=== PATIENT | male | born 1960 | race African-American/Black ===

== ENCOUNTER 2018-03-25 21:20 | Inpatient (IN) | payer OTHER ==
[~2018-03-25] VITALS: Ht 188 cm; Wt 102.1 kg
[2018-03-25] MEDS ORDERED: IV NS 0.9% 1,000 ML BAG IV ONE (21:30)
[2018-03-25] MEDS ORDERED: ONDANSETRON HCL/PF 4 MG/2 ML VIAL IVP ONE (21:30)
[2018-03-25] MEDS ORDERED: ONDANSETRON HCL/PF 4 MG/2 ML VIAL ONE (21:32)
--- NOTE | 2018-03-25 21:34 | NUR ---
DIVISION HEAD AT BEDSIDE FOR BLOOD DRAW
--- NOTE | 2018-03-25 21:35 | NUR ---
EKG AT BEDSIDE
[2018-03-25 21:46] LABS: ABG BASE EXCESS -8.6 mmol/L; ABG PCO2 22.2 mmHg (35.0-45.0); ABG PH 7.423 (7.350-7.450); AaDO2 404.1 mmHg; COHb 0.3 % (0.5-1.5); MetHb 0.4 % (0.0-1.5); O2Hb 97.3 % (94.0-97.0); SITE, ABG Right Radial; VENT MODE, BG NRB
--- NOTE | 2018-03-25 21:48 | NUR ---
RT AT BEDSIDE
[2018-03-25 23:12] LABS: BASOPHILS % (AUTO) 0.2 % (0.0-2.0); EOSINOPHILS % (AUTO) 0.5 % (0.0-6.0); HEMATOCRIT 31 % (39-51); HEMOGLOBIN 10.2 g/dL (13.5-17.5); LYMPHOCYTES # (AUTO) 0.7 /CMM (0.8-4.8); LYMPHOCYTES % (AUTO) 4.5 % (20.0-44.0); MEAN CORPUSCULAR HEMOGLOBIN 29 PG (26.0-33.0); MEAN CORPUSCULAR HGB CONC 33 g/dl (31.0-36.0); MEAN CORPUSCULAR VOLUME 88 fL (80-96); MONOCYTES # (AUTO) 0.7 /CMM (0.1-1.30); MONOCYTES % (AUTO) 4.1 % (2.0-12.0); NEUTROPHILS # (AUTO) 14.7 /CMM (1.8-8.9); NEUTROPHILS % (AUTO) 90.7 % (43.0-81.0); PLATELET COUNT (AUTO) 316 /CMM (150-450); RDW COEFFICIENT OF VARIATION 16.3 (11.5-15.0); RED BLOOD CELL COUNT(AUTO) 3.57 MIL/uL (4.5-6.0); WHITE BLOOD COUNT (AUTO) 16.2 K/uL (4.3-11.0)
[2018-03-25 23:48] LABS: CALCIUM, SERUM 7.6 mg/dL (8.5-10.1); POTASSIUM 3.4 mmol/L (3.5-5.1)
[2018-03-25 23:49] LABS: TROPONIN I 0.727 ng/mL (0.00-0.056)
[2018-03-25 23:51] LABS: INR 1.05 (0.87-1.13)
[2018-03-25 23:53] LABS: ALBUMIN 2.3 g/dL (3.4-5.0); BILIRUBIN,DIRECT 0.2 mg/dL (0.0-0.2); BILIRUBIN,TOTAL 0.7 mg/dL (0.2-1.0); TOTAL PROTEIN, SERUM 6.3 g/dL (6.4-8.2)
[2018-03-26] VITALS (18 sets, daily range): BP systolic 100–134; BP diastolic 59–86
--- NOTE | 2018-03-26 00:22 | NUR ---
RECEIVED AUTH NUMBER [id number] FROM [facility]
[2018-03-26] MEDS ORDERED: PIPERACILLIN /TAZOBACTAM 3.375 G in IV D5W 50 ML IV ONE (00:30)
[2018-03-26] MEDS ORDERED: CT SWABBABLE VALVE TRANS SET 1 EA INFUS.SET MC ONE (00:32)
[2018-03-26] MEDS ORDERED: IOHEXOL-350 100 ML VIAL IV ONE (00:32)
[2018-03-26] MEDS ORDERED: IV NS 0.9% 250 ML IV ONE (00:32)
[2018-03-26] MEDS ORDERED: IOHEXOL-300 100 ML VIAL IV ONE (00:33)
--- NOTE | 2018-03-26 00:34 | NUR ---
PT OFF TO CT
[2018-03-26] MEDS ORDERED: PIPERACILLIN /TAZOBACTAM 3.375 G VIAL IV ONE (00:42)
[2018-03-26] MEDS ORDERED: AMOX-430 PO (00:46)
[2018-03-26] MEDS ORDERED: METR500T PO (00:46)
[2018-03-26] MEDS ORDERED: HYDR-552 PO (00:46)
[2018-03-26] MEDS ORDERED: LISI-603 PO (01:56)
[2018-03-26] MEDS ORDERED: GLIM4TAB2 PO (01:56)
[2018-03-26] MEDS ORDERED: CANA300T PO (01:56)
[2018-03-26] MEDS ORDERED: LINA5TAB PO (01:56)
[2018-03-26] MEDS ORDERED: METF10004 PO (01:56)
[2018-03-26] MEDS ORDERED: ATOR10TA PO (01:56)
--- NOTE | 2018-03-26 02:13 | NUR ---
CALLED DANIELLE FOR RESULTS. STATED THEY HAVE NOT BEEN READ BUT WILL SOON
--- NOTE | 2018-03-26 02:25 | NUR ---
CALLED SENIOR JAVA ARCHITECT BACK FOR PT'S STATUS AND NEED TO TRANSFER PT. TO FAX ALL REPORTS REQUESTED.
[2018-03-26] MEDS ORDERED: AZITHROMYCIN 500 MG in IV D5W 250 ML IV ONE (03:30)
[2018-03-26] MEDS ORDERED: VANCOMYCIN 1 GM in IV D5W 250 ML IV ONE (03:30)
[2018-03-26] MEDS ORDERED: AZITHROMYCIN 500 MG VIAL ONE (03:55)
[2018-03-26] MEDS ORDERED: VANCOMYCIN 1 GM VIAL ONE (03:55)
[2018-03-26] MEDS ORDERED: HEPARIN INFUSION/D5W 500 ML IV ONE (03:55)
[2018-03-26] MEDS ORDERED: HEPARIN INFUSION/D5W 500 ML IV PRN (04:00)
--- NOTE | 2018-03-26 04:22 | NUR ---
HEPARIN DRIP IVPB LAC 20G END TIME INFUSING ON AMDISSION/TRANSFER
--- NOTE | 2018-03-26 04:58 | NUR ---
CALLED SUPERVISOR STERILE PROCESSING AGAIN; "NO RESPONSE YET FROM THE DOCTOR"
--- NOTE | 2018-03-26 05:37 | NUR ---
CALLED DR. CAMILO FOR ADMISSION AT [facility] [phone]; MESSAGE LEFT AND TO BE PAGED.
--- NOTE | 2018-03-26 05:51 | NUR ---
PER DR. NDIAYE "DR. CAMILO AND I AGREED PT TO SATY HERE AND BE ADMITTED TO ICU"
--- NOTE | 2018-03-26 06:06 | NUR ---
REPORT GIVEN TO KIKA
[2018-03-26] MEDS ORDERED: ACETAMINOPHEN 325 MG TABLET PO PRN (06:30)
[2018-03-26] MEDS ORDERED: MAG HYDROX/AL HYDROX/SIMETH 30 ML UDC PO PRN (06:30)
[2018-03-26] MEDS ORDERED: Z GUARD REMEDY 2 OZ OINT TP PRN (06:30)
[2018-03-26] MEDS ORDERED: DEXTROSE 50%-WATER 50 ML DISP.SYRIN IV PRN (06:30)
[2018-03-26] MEDS ORDERED: MAGNESIUM HYDROXIDE 30 ML UDC PO PRN (06:30)
[2018-03-26] MEDS ORDERED: IV NS 0.9% 1,000 ML IV ONE (07:00)
--- NOTE | 2018-03-26 07:10 | NUR ---
RN INITIAL NOTES: Rec'd pt asleep on bed, easily awaken, A/O x 4, denies any chest pain though c/o little SOB. On NC at 2lpm, sating at 95%. On telemonitor, ST 113 bpm. Has 2 IV line access - L IJ G18 w/ NS x 75 cc/hr infusing well but c/o little bit pain on the site, L AC G20 w/ Heparin drip x 1900 u/hr infusing well. Noted dry dressing on the abdominal area s/p sx procedure. Provided comfort & safety measures. Bed kept low & in locked pos. Call light placed w/in reach. Will cont to monitor & attend pt needs.
--- NOTE | 2018-03-26 07:15 | NUR ---
RN NOTES ADMITTED 58 Y/OM FROM ER UNDER DR. ANTUNEZ. DIAGNOSED WITH PULMONARY EMBOLISM. PT IS AOX 4. WITH O2 2LPM VIA NC SATURATION 93%. PLACED ON TELE MONITOR REVEALS ST 116. AFEBRILE. VSS. IV SITE ON LEJ G 18 ANS LAC G 20 WITH ONGOING HEPARIN 1900 UNIT/HR INTACT AND PATENT S/E BY DR. PADILLA. SKIN ASSESSMENT DONE PRESENT WITH ABDOMINAL INCISION FROM BOWEL RESECTION 2 WEEKS AGO FROM [facility]. CLEANSED AND KEPT CLEAN AND DRY. IVF STARTED . CALL LIGHT INSTRUCTED TO USED FOR ASSISTANCE. ENDORSED CONTINUITY OF CARE TO AM NURSE.
[2018-03-26] MEDS: BLOOD SUGAR DIAGNOSTIC 1 EACH STRIP VI SCH ×4 (07:53→21:35)
[2018-03-26] MEDS: POTASSIUM CL. PREMIX PERIPHER. 50 ML IV SCH ×2 (07:55→10:53)
[2018-03-26] MEDS: INSULIN REGULAR, HUMAN 100 UNIT/ML 3 ML VIAL SQ PRN ×3 (07:58→17:52)
[2018-03-26 08:25] LABS: PHOSPHORUS 3.7 mg/dL (2.5-4.9)
--- NOTE | 2018-03-26 08:30 | NUR ---
Dr. Monet made aware re: Trop I 4.842, pt not c/o any chest pain/discomfort though still SOB. Per MD, all because of P.E. CN able to talk to Dr. Monet over the phone.
[2018-03-26 08:50] LABS: THYROID STIMULATING HORMONE 0.901 uIU/mL (0.358-3.74)
--- NOTE | 2018-03-26 09:00 | NUR ---
Dr. Hagan seen & examined pt w/ orders to do STAT Duplex Venous BLE. Called [facility] Dept, spoke aurora Duffy, informed him about STAT order. Addendum: 03/26/18 at 1112 by JASVIR MICHAEL RN Made a follow up call twice from Radiology Dept, kevin Porras, said that Virginia is on her way to do the STAT procedure.
--- NOTE | 2018-03-26 09:16 | NUR ---
WOUND CARE CONSULT: PT PRESENTS WITH OPEN INCISION TO ABDOMEN, PRESENT ON ADMISSION. RECOMMENDATIONS MADE FOR SKIN PROTECTION AND WOUND CARE. DISCUSSED WITH NURSING STAFF. RECOMMEND SURGICAL CONSULT. PT IS CONTINENT AND ABLE TO REPOSITION HIMSELF IN BED. WILL SEE PRN. CASTANON IN AGREEMENT WITH PLAN OF CARE. Addendum: 03/26/18 at 0917 by SUNNY LOW WNDNU Amended: Links added.
[2018-03-26] MEDS: ASPIRIN 81 MG TAB.CHEW PO SCH (09:17)
[2018-03-26 09:22] LABS: INR 1.05 (0.87-1.13)
--- NOTE | 2018-03-26 09:45 | NUR ---
Pt requesting for central line, he said that he is hardstick. Consent signed for PICC line insertion. Dr. Pepe made aware.
[2018-03-26] MEDS ORDERED: HEPARIN SODIUM,PORCINE/PF 50 UNIT/5 ML DISP.SYRIN IV STA (10:05)
[2018-03-26] MEDS: PIPERACILLIN /TAZOBACTAM 3.375 G in IV D5W 50 ML IV SCH ×4 (10:49→23:30)
--- NOTE | 2018-03-26 11:34 | NUR ---
Pt seen & examined by Dr. Pepe. MD rock for PICC line.
[2018-03-26 11:35] LABS: BASOPHILS % (AUTO) 0.2 % (0.0-2.0); EOSINOPHILS % (AUTO) 0.3 % (0.0-6.0); HEMATOCRIT 29 % (39-51); HEMOGLOBIN 9.4 g/dL (13.5-17.5); LYMPHOCYTES # (AUTO) 0.6 /CMM (0.8-4.8); LYMPHOCYTES % (AUTO) 5.4 % (20.0-44.0); MEAN CORPUSCULAR HEMOGLOBIN 28 PG (26.0-33.0); MEAN CORPUSCULAR HGB CONC 33 g/dl (31.0-36.0); MEAN CORPUSCULAR VOLUME 87 fL (80-96); MONOCYTES # (AUTO) 0.4 /CMM (0.1-1.30); MONOCYTES % (AUTO) 3.7 % (2.0-12.0); NEUTROPHILS # (AUTO) 9.8 /CMM (1.8-8.9); NEUTROPHILS % (AUTO) 90.4 % (43.0-81.0); PLATELET COUNT (AUTO) 287 /CMM (150-450); RDW COEFFICIENT OF VARIATION 16.2 (11.5-15.0); WHITE BLOOD COUNT (AUTO) 10.9 K/uL (4.3-11.0)
[2018-03-26 11:53] LABS: INR 1.04 (0.87-1.13)
--- NOTE | 2018-03-26 12:10 | NUR ---
Rec'd call from Dr. Coronado, per he will see pt later this PM. Pt & sister made aware.
[2018-03-26] MEDS: HEPARIN INFUSION/D5W 500 ML IV PRN (12:23)
--- NOTE | 2018-03-26 12:30 | NUR ---
PICC line inserted on JALEEL w/ good venous return. CXR ordered to confirm placement.
[2018-03-26] MEDS: ONDANSETRON HCL/PF 4 MG/2 ML VIAL IVP PRN ×2 (13:00→19:01)
--- NOTE | 2018-03-26 13:00 | NUR ---
Dr. Hagan made aware re: Venous Doppler result - negative for DVTs. Okay for DVT pumps.
[2018-03-26] MEDS ORDERED: DAKINS QUARTER STRENGTH (0.125%) 480 ML BOTTLE TOP SCH (14:30)
--- NOTE | 2018-03-26 14:30 | NUR ---
Pt seen & examined by MELINA Gomez. Surgical wound on the abdomen assessed w/ orders made & carried out. Specimen sent for culture.
[2018-03-26] MEDS: HYDROCODONE/APAP 5/325MG 1 EACH TABLET PO PRN ×2 (16:44→20:53)
--- NOTE | 2018-03-26 17:03 | NUR ---
Pt seen & examined by Dr. Coronado. Per MD, pt does not need surgery at this time. Pt's questions & concerns all answered by MD. Caldera at bedside.
--- NOTE | 2018-03-26 18:40 | NUR ---
RN CLOSING NOTES: No acute changes noted w/in shift. Pt tolerated NC at 2lpm, no SOB. On telemonitor, still ST. 2 IV line access - JALEEL PICC line w/ NS x 75 cc/hr & Heparin Drip 1900u/hr both infusing well; L AC G20, SL, both kept patent & intact w/ no s/sx of infection/infiltration. Wound on the abdominal area kept clean & dry. Pt kept well rested. Needs attended. Bed kept low & in locked pos. Call light placed w/in reach. Will endorse to PM RN for LEONARDO.
--- NOTE | 2018-03-26 19:11 | NUR ---
Patient lives at home with family/parents.He was ambulatory and independent with adl's prior to admit. Has good family support. Patient is capped to [facility] per Joce PINEDA [facility] but patient is not stable to transfer. Addendum: 03/26/18 at 1912 by CHRISTIANA CHRISTINA RN Amended: Links added.
[2018-03-26 19:45] LABS: APPEARANCE,URINE CLEAR (CLEAR); BILIRUBIN,URINE NEGATIVE (NEGATIVE); BLOOD, URINE 2+ Ery/uL (NEGATIVE); COLOR,URINE YELLOW (YELLOW); KETONES,URINE NEGATIVE (NEGATIVE); LEUKOCYTE ESTERASE ,URINE NEGATIVE (NEGATIVE); NITRITE, URINE NEGATIVE (NEGATIVE); PROTEIN,URINE NEGATIVE (NEGATIVE); UGLUCOSE 3+ mg/dL (NEGATIVE); UROBILINOGEN,URINE 0.2 EU/dL (0.2)
--- NOTE | 2018-03-26 20:00 | NUR ---
Received patient AAO X4.VS stable.Respiration even and unlabored with O2 2L NC saturation 98%. ST with BBB per monitor.Denies pain or sob.IVF and Heparin gtt infusing at 1900 units/hr via JALEEL PICC Line and site intact.Call light at bedside within easy reach instructed to call for assistance or when in pain.Voiding per urinal.
[2018-03-26 20:10] LABS: BACTERIA,URINE Rare /HPF (None Seen); SQUAMOUS EPITHELIAL CELL,UR Rare /HPF (None Seen); WBC,URINE 0-2 /HPF (0-3)
[2018-03-26 20:19] LABS: CREATININE, URINE 51.4 MG/DL (30.0-125.0); URINE TOTAL PROTEIN 34.7 mg/dL (0-11.9)
[2018-03-26 20:31] LABS: EOSINOPHIL,URINE None Seen
[2018-03-26] MEDS: DAKINS HALF STRENGTH (0.25%) 480 ML BOTTLE TOP SCH (20:53)
[2018-03-26] MEDS: *INSULIN REGULAR(HUMULIN R)HUM 100 UNIT/ML VIAL SQ PRN (21:36)
--- NOTE | 2018-03-26 22:00 | NUR ---
Was medicated for pain.Abdominal wound dressing done per protocol.Tolerated procedure well.
[2018-03-27] VITALS (31 sets, daily range): BP systolic 92–146; BP diastolic 53–83
--- NOTE | 2018-03-27 | NUR ---
Patient resting.VS remains stable.IV's infusing well.
[2018-03-27] MEDS ORDERED: HEPARIN INFUSION/D5W 500 ML IV ONE (00:32)
[2018-03-27] MEDS: HEPARIN INFUSION/D5W 500 ML IV PRN ×2 (01:48→13:27)
[2018-03-27] MEDS: HYDROCODONE/APAP 5/325MG 1 EACH TABLET PO PRN ×2 (02:06→13:57)
--- NOTE | 2018-03-27 04:00 | NUR ---
AM labs resulted PTT= 65.No changes made to current Heparin gtt rate per protocol. AM care done.All linens changed.
[2018-03-27 04:41] LABS: BASOPHILS % (AUTO) 0.2 % (0.0-2.0); EOSINOPHILS % (AUTO) 1.7 % (0.0-6.0); HEMATOCRIT 27 % (39-51); HEMOGLOBIN 8.8 g/dL (13.5-17.5); LYMPHOCYTES # (AUTO) 0.7 /CMM (0.8-4.8); MEAN CORPUSCULAR HEMOGLOBIN 29 PG (26.0-33.0); MEAN CORPUSCULAR HGB CONC 33 g/dl (31.0-36.0); MEAN CORPUSCULAR VOLUME 87 fL (80-96); MONOCYTES # (AUTO) 0.5 /CMM (0.1-1.30); NEUTROPHILS # (AUTO) 7.9 /CMM (1.8-8.9); NEUTROPHILS % (AUTO) 85.1 % (43.0-81.0); PLATELET COUNT (AUTO) 276 /CMM (150-450); RDW COEFFICIENT OF VARIATION 16.3 (11.5-15.0); RED BLOOD CELL COUNT(AUTO) 3.07 MIL/uL (4.5-6.0); WHITE BLOOD COUNT (AUTO) 9.2 K/uL (4.3-11.0)
[2018-03-27 04:55] LABS: ALBUMIN 1.9 g/dL (3.4-5.0); BILIRUBIN,TOTAL 0.5 mg/dL (0.2-1.0); CALCIUM, SERUM 7.6 mg/dL (8.5-10.1); CREATININE 2.2 mg/dL (0.6-1.3); MAGNESIUM 2.1 mg/dL (1.8-2.4); PHOSPHORUS 3.4 mg/dL (2.5-4.9); POTASSIUM 3.6 mmol/L (3.5-5.1); TOTAL PROTEIN, SERUM 5.6 g/dL (6.4-8.2)
[2018-03-27 05:01] LABS: INR 1.08 (0.87-1.13)
[2018-03-27 05:09] LABS: TROPONIN I 1.701 ng/mL (0.00-0.056)
[2018-03-27] MEDS: PIPERACILLIN /TAZOBACTAM 3.375 G in IV D5W 50 ML IV SCH ×4 (05:28→23:45)
--- NOTE | 2018-03-27 06:30 | NUR ---
Patient resting.No significant change noted.All needs anticipated and met.
--- NOTE | 2018-03-27 07:12 | NUR ---
RN INITIAL NOTES: Rec'd pt asleep on bed, easily awaken, A/O x 4, denies any chest pain & SOB. On NC at 2lpm, sating at 96%. On telemonitor, ST/SR. Has 2 IV line access - JALEEL PICC line, TLC w/ Heparin x 1900 u/hr infusing well & L AC G20, SL, no s/sx of infection/infiltration. Noted dry dressing on the abdominal area. Provided comfort & safety measures. Bed kept low & in locked pos. Call light placed w/in reach. Will cont to monitor & attend pt needs.
[2018-03-27] MEDS: BLOOD SUGAR DIAGNOSTIC 1 EACH STRIP VI SCH ×4 (07:57→22:09)
[2018-03-27] MEDS: INSULIN REGULAR, HUMAN 100 UNIT/ML 3 ML VIAL SQ PRN ×3 (08:01→17:44)
[2018-03-27] MEDS: ASPIRIN 81 MG TAB.CHEW PO SCH (08:29)
[2018-03-27] MEDS: DAKINS HALF STRENGTH (0.25%) 480 ML BOTTLE TOP SCH ×2 (08:30→21:00)
--- NOTE | 2018-03-27 09:12 | NUR ---
Pt seen & examined by MELINA Gomez. RIVER DRIVER made aware that there's no available Dakins 1/4 strength. She said okay to use Dakins 1/2 strength but mixed w/ saline. Pt started on I.S as ordered by RIVER DRIVER. Pt instructed on how to use I.S w/ verbalization of understanding.
--- NOTE | 2018-03-27 10:39 | NUR ---
Pt seen & examined by Dr. Clement.
[2018-03-27] MEDS: SOD FERRIC GLUC 125 MG in IV NS 0.9% 100 ML IV SCH (15:13)
--- NOTE | 2018-03-27 18:30 | NUR ---
RN CLOSING NOTES: No acute changes noted w/in shift. Pt tolerated NC at 2lpm, no SOB. On telemonitor, still ST/SR. 2 IV line access - JALEEL PICC line w/ Heparin Drip 1900u/hr infusing well. Wound care done on the abdominal area. Pt kept well rested. Needs attended. Bed kept low & in locked pos. Call light placed w/in reach. Will endorse to PM RN for LEONARDO.
--- NOTE | 2018-03-27 19:40 | NUR ---
ICU/RN RECEIVED PT AWAKE ALERT OX3.DENIES PAIN OR DISCOMFORT.ABDOMINAL DRESSING DRY AND INTACT.MONITORSHOWS NSR.VOIDING WITOUT DIFFICULTY.
--- NOTE | 2018-03-27 21:00 | NUR ---
ICU/RN PT. REQUESTING FOR ABDOMINAL INCISION W/ DAIKIN'S SOLUTION LATER ON .
[2018-03-27] MEDS: *INSULIN REGULAR(HUMULIN R)HUM 100 UNIT/ML VIAL SQ PRN (22:02)
[2018-03-27] MEDS: INSULIN GLARGINE, 100 UNIT/ML CARTRIDGE SQ SCH (22:11)
[2018-03-28] VITALS (31 sets, daily range): BP systolic 116–150; BP diastolic 49–89
[2018-03-28] MEDS: HEPARIN INFUSION/D5W 500 ML IV PRN (02:46)
[2018-03-28 04:48] LABS: CALCIUM, SERUM 7.6 mg/dL (8.5-10.1); CREATININE 2.2 mg/dL (0.6-1.3); PHOSPHORUS 2.9 mg/dL (2.5-4.9); POTASSIUM 3.6 mmol/L (3.5-5.1)
[2018-03-28 04:58] LABS: INR 1.11 (0.87-1.13)
--- NOTE | 2018-03-28 05:00 | NUR ---
ICU/RN PTT=85 SEC.HEPARIN DRIP DECREASED TO 1700 UNITS/HR.=34ML/HR.
[2018-03-28] MEDS: PIPERACILLIN /TAZOBACTAM 3.375 G in IV D5W 50 ML IV SCH (06:16)
--- NOTE | 2018-03-28 07:03 | NUR ---
ICU/RN REPORT AND CARE OF PT. GIVEN TO COLIN CARVER,NARCAN DRIP DECREASED TO 0.1MG/HR.PT AROUSES EASILY,OX3. Addendum: 03/28/18 at 0739 by PAVEL SANCHEZ RN ABOVE ENTRY CHARTED ON WRONG PT.
[2018-03-28] MEDS: BLOOD SUGAR DIAGNOSTIC 1 EACH STRIP VI SCH ×4 (07:30→21:24)
--- NOTE | 2018-03-28 07:39 | NUR ---
ICU/RN REPORT AND CARE OF PT GIVEN TO GERMÁN CARVER
--- NOTE | 2018-03-28 07:45 | NUR ---
Pt. AOx4, VSS, denies pain denies sob. Seen by Dr. Monet, heparin d/c, xarelto initiated pre Dr. Monet's orderers.
[2018-03-28] MEDS: ASPIRIN 81 MG TAB.CHEW PO SCH (09:44)
[2018-03-28] MEDS: RIVAROXABAN 15 MG TABLET PO SCH ×2 (09:45→17:24)
--- NOTE | 2018-03-28 10:00 | NUR ---
Pt. assisted with bed/bath and incision care.
[2018-03-28] MEDS: *INSULIN REGULAR(HUMULIN R)HUM 100 UNIT/ML VIAL SQ PRN ×3 (10:07→21:30)
[2018-03-28] MEDS: DAKINS HALF STRENGTH (0.25%) 480 ML BOTTLE TOP SCH ×2 (10:08→21:25)
[2018-03-28 12:18] LABS: PTH, INTACT 76 pg/mL (15-65)
--- NOTE | 2018-03-28 15:00 | NUR ---
Pt. ambulated in the holdaway, vital sighs and sat remains stable. pt admits to weakens during ambulation.
[2018-03-28] MEDS: SOD FERRIC GLUC 125 MG in IV NS 0.9% 100 ML IV SCH (15:46)
--- NOTE | 2018-03-28 16:30 | NUR ---
PT TRANSFERED TO ROOM 103. VSS, DENIES SOB, DENIES PAIN. REPORT TO ANNIKA
--- NOTE | 2018-03-28 17:00 | NUR ---
RN NOTE RECEIVED REPORT FROM MAXIMILIANO. RECEIVED PATIENT AWAKE ALERT AND ORIENTED X4. HE IS ABLE TO MAKE THINGS KNOWN AND VERBALIZE NEEDS. BREATHING EVEN AND UNLABORED WITH NO DISTRESS NOTED. ON CONTINUOUS O2 2L VIA NASAL CANULA. ON [employer] H[employer] SERVICES ASSISTANTS SINUS TACH HR OF 100 . RIGHT UA MIDLINE IN TACT AND PATENT. PATIENT NOTED WITH ABDOMINAL DRESSING PER MD ORDERS. REORIENTED PATIENT TO ROOM AND CALL LIGHT. ALL SAFETY MEASURES DONE. BED LOW AND LOCKED POSITION. WILL CONTINUE TO MONITOR PATIENT CLOSELY.
[2018-03-28] MEDS: INSULIN REGULAR, HUMAN 100 UNIT/ML 3 ML VIAL SQ PRN (17:32)
[2018-03-28] MEDS: ONDANSETRON HCL/PF 4 MG/2 ML VIAL IVP PRN (17:46)
--- NOTE | 2018-03-28 19:18 | NUR ---
RN NOTE PATIENT REMAINED STABLE THROUGHOUT SHIFT. NO ACUTE CHANGES OR DISTRESS NOTED. WILL ENDORSE TO NEXT SHIFT TO CONTINUE CONTINUITY OF CARE.
[2018-03-28] MEDS: INSULIN GLARGINE, 100 UNIT/ML CARTRIDGE SQ SCH (21:31)
[2018-03-29 04:00] VITALS: BP 90/65
[2018-03-29 04:37] LABS: *SPE A/G RATIO 0.7 (0.7-1.7); *SPE ALBUMIN 2.1 g/dL (2.9-4.4); *SPE ALPHA-1-GLOBULIN 0.5 g/dL (0.0-0.4); *SPE ALPHA-2-GLOBULIN 0.7 g/dL (0.4-1.0); *SPE BETA GLOBULIN 0.8 g/dL (0.7-1.3); *SPE GLOBULIN, TOTAL 2.9 g/dL (2.2-3.9); *SPE M-SPIKE Not Observed g/dL (Not Observed); *SPEGAMMA GLOBULIN 0.9 g/dL (0.4-1.8)
--- NOTE | 2018-03-29 07:16 | NUR ---
RN OPENING NOTES RECEIVED PATIENT ASLEEP IN BED, EASILY AWAKENS. ON 02 VIA N/C AT 2LPM. BREATHING EVEN AND UNLABORED. JALEEL PICC LINE INTACT AND PATENT. ABDOMINAL DRESSING C/D/I. ALL SAFETY MEASURES IN PLACE. BED LOW AND LOCKED POSITION WITH SIDE-RAILS UP X2. CALL LIGHT IN REACH. WILL CONTINUE TO MONITOR PATIENT ACCORDINGLY.
[2018-03-29] MEDS: INSULIN REGULAR, HUMAN 100 UNIT/ML 3 ML VIAL SQ PRN ×3 (07:52→17:33)
[2018-03-29] MEDS: BLOOD SUGAR DIAGNOSTIC 1 EACH STRIP VI SCH ×3 (07:53→17:33)
[2018-03-29 08:00] VITALS: BP 137/81
[2018-03-29] MEDS: DAKINS HALF STRENGTH (0.25%) 480 ML BOTTLE TOP SCH (08:21)
[2018-03-29] MEDS: RIVAROXABAN 15 MG TABLET PO SCH ×2 (08:21→16:53)
[2018-03-29] MEDS: ONDANSETRON HCL/PF 4 MG/2 ML VIAL IVP PRN (10:28)
[2018-03-29] MEDS ORDERED: Rivaroxaban PO (12:37)
[2018-03-29] MEDS: SOD FERRIC GLUC 125 MG in IV NS 0.9% 100 ML IV SCH (14:10)
--- NOTE | 2018-03-29 15:18 | NUR ---
RN NOTES SPOKE TO SPECIAL [employer] BOAT OPERATOR MARLO AND SAID THAT PT CAN BE DISCHARGED TODAY. SHE SAID THAT SHE INFORMED PT'S INSURANCE REGARDING HOME HEALTH CARE FOR PATIENT. INSURANCE TO ARRANGE HHC FOR PATIENT AND WILL LET CM AND PT WHICH HHC AGENCY TO HAVE. WILL EXPLAINED TO PT.
[2018-03-29 16:00] VITALS: BP 134/80
--- NOTE | 2018-03-29 17:43 | NUR ---
RN NOTES RADHA SELLERS CALLED AND ASKED PT'S ADDRESS AND TELEPHONE NO. FOR HOME HEALTH NURSE TO GO OR CALL. SHE ALSO SAID THAT PT'S HOME HEAL IS [facility] #[phone]. PT'S TEL NO GIVEN( [phone]) AND ADDRESS OF PT'S PR[place] KITCHEN GIVEN ( [phone] [place] [address]. PT MADE AWARE.
--- NOTE | 2018-03-29 18:37 | NUR ---
RN DISCHARGED NOTES PATIENT DISCHARGED HOME IN STABLE CONDITION. A/O X4. ABLE TO VERBALIZED NEEDS WITH NO C/O PAIN OR DISTRESS VOICED DURING DISCHARGE. V/S TAKEN AND RECORDED. PHOTO OF ABDOMINAL WOUND TAKEN AND FILED ON CHART. BELONGINGS CHECKED, COUNTED AND SIGNED FORM. PT REFUSED PNA VACCINE. HEALTH TEACHINGS/ DISCHARGED INSTRUCTIONS GIVEN AND VERBALIZED UNDERSTANDING. PRESCRIPTION OF XARELTO GIVEN TO PT. PATIENT LEFT UNIT @ 1830 VIA WHEEL CHAIR ACCOMPANIED BY TRAINING AND QUALITY MANAGER AND PT'S BROTHER -[place]. AND CHARGE NURSE AWARE OF DISCHARGE.
== END 2018-03-29 18:54 | disposition home health service (06) | DRG 720 ==
LOC: ER 21:25 → ICU 03-26 06:03 → TELE1 03-28 16:50 → MEDSG1 03-28 20:38
PROVIDERS: ADMIT Internal Medicine; ATTEND Internal Medicine
PROC: B548ZZA Ultrasonography of Superior Vena Cava, Guidance (ICD-10-PCS; principal; 2018-03-26)
PROC: 02HV33Z Insertion of Infusion Device into Superior Vena Cava, Percutaneous Approach (ICD-10-PCS; principal; 2018-03-26)
DX: A41.9 Sepsis, unspecified organism (principal); I26.99 Other pulmonary embolism without acute cor pulmonale; I21.A1 Myocardial infarction type 2; J96.01 Acute respiratory failure with hypoxia; N17.0 Acute kidney failure with tubular necrosis; I13.0 Hypertensive heart and chronic kidney disease with heart failure and stage 1 through stage 4 chronic kidney disease, or unspecified chronic kidney disease; J18.9 Pneumonia, unspecified organism; E87.2 Acidosis; E11.22 Type 2 diabetes mellitus with diabetic chronic kidney disease; N18.9 Chronic kidney disease, unspecified; E44.0 Moderate protein-calorie malnutrition; Z79.84 Long term (current) use of oral hypoglycemic drugs; Z79.899 Other long term (current) drug therapy; K21.9 Gastro-esophageal reflux disease without esophagitis; Y83.9 Surgical procedure, unspecified as the cause of abnormal reaction of the patient, or of later complication, without mention of misadventure at the time of the procedure; Y92.009 Unspecified place in unspecified non-institutional (private) residence as the place of occurrence of the external cause; Y95 Nosocomial condition; D50.9 Iron deficiency anemia, unspecified; Z87.891 Personal history of nicotine dependence; Z86.711 Personal history of pulmonary embolism; Z82.49 Family history of ischemic heart disease and other diseases of the circulatory system; E78.5 Hyperlipidemia, unspecified; E87.6 Hypokalemia; T81.30XD Disruption of wound, unspecified, subsequent encounter
CPT/HCPCS: 36415; 36600; 70450-TC; 71045-TC; 76770-TC; 80048-TC; 80053-TC; 80061-TC; 80076-TC; 81000-TC; 82306; 82550-TC; 82570-TC; 82728-TC; 82962-TC; 83540-TC; 83605-TC; 83735-TC; 83970; 84100-TC; 84155; 84155-TC; 84165; 84300-TC; 84439-TC; 84443-TC; 84484-TC; 85025-TC; 85730-TC; 86850-TC; 87040-TC; 87070-TC; 87081-TC; 93307-TC; 93970-TC; A4606; A6253; A6402; A6403; C1751; J0456; J1642; J1644; J1815; J2405; J2543; J2916; J3370; J3480; J7030; J7040; J7050; J7060; Q9967; Z7610